=== PATIENT | male | born 2000 | race Caucasian/White ===

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

== ENCOUNTER 2023-02-21 19:16 | Emergency (ER) | payer OTHER ==
[~2023-02-21] VITALS: Ht 175.3 cm; Wt 59.0 kg
[~2023-02-21 19:16] MED LIST: ALBUTEROL SUL 2.5 MG/3 ML SOLN; PROAIR HFA 90 MCG INHALER
[2023-02-21 19:36] VITALS: O2SAT 97
== END 2023-02-21 20:31 | disposition home or self-care (01) ==
LOC: ER 19:19
DX: S00.511A Abrasion of lip, initial encounter (principal); J45.909 Unspecified asthma, uncomplicated; Z79.899 Other long term (current) drug therapy; W21.05XA Struck by basketball, initial encounter; Y93.67 Activity, basketball; Y92.89 Other specified places as the place of occurrence of the external cause; Y99.8 Other external cause status
CPT/HCPCS: A4663